=== PATIENT | female | born 1995 | race Caucasian/White ===

== ENCOUNTER 2016-11-17 21:04 | Inpatient (IN) | payer BC ==
[~2016-11-17] VITALS: Ht 175.3 cm; Wt 61.2 kg
[~2016-11-17 21:04] MED LIST: ABL/5 PO; LMC100 PO; LXP10 PO
[2016-11-17] MEDS ORDERED: ESCI1TAB10 PO (21:31)
[2016-11-17] MEDS ORDERED: LAMO200T38 PO (21:31)
[2016-11-17] MEDS ORDERED: LORA-741 PO (21:34)
--- NOTE | 2016-11-17 21:49 | EMERGENCY ROOM VISIT NOTE ---
History Report prepared by Daniel: Rom Price Under the Supervision of: Dr. Bob Rosa M.D. First contact with patient: 21:37 Chief Complaint: MENTAL HEALTH EVALUATION Stated Complaint: MENTAL HEALTH History of Present Illness The patient is a 21 year old female who presents to the Emergency Room for a mental health evaluation. She presents to the ED due to a suicidal thoughts that occurred today. She has many stressors in her life. These include financial stress due to her leaving her job and not having another one lined up , moving out of her apartment, and interpersonal stress due to her boss at her old job being her friend and he is dating her sister. She stated that the stressor today tipped her over the edge: her apartment ran out of oil for heat. She had a plan to take all of her pills to commit suicide. She has never tried to hurt herself before and only had this thought today. She is currently prescribed Ativan 0.5 mg PRN, Lexapro 20 mg, Abilify 5 mg, and Lamictal 175 mg. Her Lexapro and Lamictal were recently increased due to her "not doing well." She does not have any past medical history. She believes that inpatient help would be beneficial. Source of History: patient Onset: today Position: other (Mental Health) Symptom Intensity: mild Quality: other (Mental Health Evaluation) Timing: intermittent Note: She denies any other symptoms. Review of Systems See HPI for pertinent positives & negatives. A total of 10 systems reviewed and were otherwise negative. Past Medical & Surgical Medical Problems: (1) Abdominal pain (2) No significant medical problems Family History No significant family history Social History Smoking Status: Current Every Day Smoker Marital Status: single Occupation Status: student Current/Historical Medications Scheduled Aripiprazole (Abilify), 5 MG PO DAILY Escitalopram Oxalate (Lexapro), 20 MG PO HS Lamotrigine (Lamictal), 200 MG PO DAILY Scheduled PRN Lorazepam (Ativan), 0.5 MG PO Q6H PRN for Anxiety Allergies Coded Allergies: No Known Allergies (Unverified , 11/17/16) Physical Exam Vital Signs Date Time Temp Pulse Resp B/P Pulse Ox O2 Delivery O2 Flow Rate FiO2 11/17/16 21:15 37.1 89 18 107/65 98 Room Air Physical Exam GENERAL: Patient is in no acute distress. HEENT: No acute trauma, normocephalic atraumatic, mucous membranes moist, no nasal congestion, no scleral icterus. NECK: No stridor, no adenopathy, no meningismus, trachea is midline. LUNGS: Clear to auscultation bilaterally, no wheeze, no rhonchi, breath sounds equal. HEART: Without murmurs gallops or rubs, regular rate and rhythm. ABDOMEN: Soft, nontender, bowel sounds positive, no hernias, no peritonitis. EXTREMITIES: No cyanosis or edema, full range of motion of all the joints without pain or difficulty, no signs for acute trauma. NEUROLOGIC: Oriented x 3, no acute motor or sensory deficits, no focal weakness. SKIN: No rash, no jaundice, no diaphoresis. PSYCH: Cooperative, voluntary, admits to suicidal ideation with a plan to overdose on pills. Medical Decision & Procedures Laboratory Results 11/17/16 22:00 11/17/16 22:00 Test 11/17/16 00:00 11/17/16 22:00 Urine Color YELLOW Urine Appearance CLEAR (CLEAR) Urine pH 5.5 (4.5-7.5) Urine Specific [place] 1.001 (1.000-1.030) Urine Protein NEG (NEG) Urine Glucose (UA) NEG (NEG) Urine Ketones NEG (NEG) Urine Occult Blood 2+ (NEG) Urine Nitrite NEG (NEG) Urine Bilirubin NEG (NEG) Urine Urobilinogen NEG (NEG) Urine Leukocyte Esterase SMALL (NEG) Urine WBC (Auto) 5-10 /hpf (0-5) Urine RBC (Auto) 0-4 /hpf (0-4) Urine Hyaline Casts (Auto) 1-5 /lpf (0-5) Urine Epithelial Cells (Auto) >30 /lpf (0-5) Urine Bacteria (Auto) 1+ (NEG) Urine Opiates Screen NEG (NEG) Urine Methadone, Qualitative NEG (NEG) Urine Barbiturates NEG (NEG) Urine Phencyclidine (PCP) Level NEG (NEG) Ur Amphetamine/Methamphetamine NEG (NEG) MDMA (Ecstasy) Screen NEG (NEG) Urine Benzodiazepines Screen NEG (NEG) Urine Cocaine Metabolite NEG (NEG) Urine Marijuana (THC) POS (NEG) Red Blood Count 4.54 M/uL (4.2-5.4) Mean Corpuscular Volume 74.0 fL (80-100) Mean Corpuscular Hemoglobin 24.2 pg (25-34) Mean Corpuscular Hemoglobin Concent 32.7 g/dl (32-36) RDW Standard Deviation 39.5 fL (36.4-46.3) RDW Coefficient of Variation 14.9 % (11.5-14.5) Mean Platelet Volume 9.1 fL (7.4-10.4) Anion Gap 9.0 mmol/L (3-11) Est Creatinine Clear Calc Drug Dose 91.3 ml/min Estimated GFR () 96.1 Estimated GFR (Non- 82.9 BUN/Creatinine Ratio 11.2 (10-20) Calcium Level 8.8 mg/dl (8.5-10.1) Total Bilirubin 0.3 mg/dl (0.2-1) Aspartate Amino Transf (AST/SGOT) 21 U/L (15-37) Alanine Aminotransferase (ALT/SGPT) 25 U/L (12-78) Alkaline Phosphatase 65 U/L (45-117) Total Protein 7.7 gm/dl (6.4-8.2) Albumin 3.9 gm/dl (3.4-5.0) Globulin 3.8 gm/dl (2.5-4.0) Albumin/Globulin Ratio 1.0 (0.9-2) Thyroid Stimulating Hormone (TSH) 3.020 uIu/ml (0.300-4.500) Human Chorionic Gonadotropin, Qual NEG (NEG) Salicylates Level 2.0 mg/dl (2.8-20) Acetaminophen Level < 2 ug/ml (10-30) Ethyl Alcohol mg/dL < 3.0 mg/dl (0-3) Laboratory results reviewed by me. ED Course 2136: The patient was evaluated in room A7. A complete history and physical exam was performed. 0: I am waiting to hear back for where the patient will be accepted as an in patient. 2323: I was informed that the patient was accepted into our unit, [facility]. She will voluntarily enter under their care. Medical Decision Differential diagnosis includes but is not limited to: Drug/alcohol abuse, suicidal ideation, electrolyte imbalance, , and thyroid disorder. There is no leukocytosis or concerning anemia. No significant electrolyte abnormality, kidney failure or hepatitis. The patient appears to be in a euthyroid state. Urinalysis does not show infection but more so contamination. testing was negative. Urine tox shows marijuana only. Aspirin, Tylenol and alcohol levels were basically undetectable. The patient presents with suicidal thoughts. She is under some increased stress. She is voluntary and believes that an inpatient stay under the psychiatry services would be beneficial. The patient was felt medically clear for a psychiatric evaluation. The patient was seen by the psychiatry services from this hospital, [facility]. She will be brought into this hospital's psychiatric unit as a voluntary admission. She has done well while here in the emergency room. Impression Primary Impression: Suicidal ideation Scribe Attestation The scribe's documentation has been prepared under my direction and personally reviewed by me in its entirety. I confirm that the note above accurately reflects all work, treatment, procedures, and medical decision making performed by me. [facility] Patient Instructions My [facility]
[2016-11-17 22:15] LABS: URINE APPEARANCE CLEAR (CLEAR); URINE BILIRUBIN NEG (NEG); URINE COLOR YELLOW; URINE EPITHELIAL CELL AUTO >30 /lpf (0-5); URINE NITRITE NEG (NEG); URINE PH 5.5 (4.5-7.5); URINE SPECIFIC GRAVITY 1.001 (1.000-1.030); UROBILINOGEN NEG (NEG)
[2016-11-17 22:15] LABS: HEMATOCRIT 33.6 % (37-47); MEAN CORPUSCULAR HEMOGLOBIN 24.2 pg (25-34); MEAN CORPUSCULAR HGB CONC 32.7 g/dl (32-36); MEAN PLATELET VOLUME 9.1 fL (7.4-10.4); PLATELET COUNT 241 K/uL (130-400); RED BLOOD COUNT 4.54 M/uL (4.2-5.4)
[2016-11-17 22:26] LABS: MANUAL MICROSCOPIC REQUIRED? NO; REVIEW REQ? YES
[2016-11-17 22:29] LABS: ZZUR CULT IF INDIC CLEAN CATCH YES
[2016-11-17 22:33] LABS: BUN/CREATININE RATIO 11.2 (10-20); CALCIUM 8.8 mg/dl (8.5-10.1); CREATININE 0.97 mg/dl (0.60-1.20); POTASSIUM 3.6 mmol/L (3.5-5.1)
[2016-11-17 22:34] LABS: ACETAMINOPHEN < 2 ug/ml (10-30)
[2016-11-17 22:39] LABS: PREG INTERNAL NEGATIVE QC NEG CLEAR BACKGROUND; PREG INTERNAL POSITIVE QC POS CONTROL LINE
[2016-11-17 22:43] LABS: THYROID STIMULATING HORMONE 3.02 uIu/ml (0.300-4.500)
[2016-11-17 23:08] LABS: BENZODIAZEPINE, URINE NEG (NEG); COCAINE,URINE NEG (NEG); PHENCYCLIDINE, URINE NEG (NEG)
[2016-11-18] MEDS ORDERED: NURSING VERBAL MED ORDER ONE (00:15)
[2016-11-18 00:24] VITALS: O2SAT 98
[2016-11-18 00:45] VITALS: BP 107/61; PULSE 72; TEMP 37.1; Ht 175.3 cm; Wt 61.2 kg
[2016-11-18] MEDS ORDERED: SODIUM CHLORIDE 0.65% NA SOLN 45 ML (OCEAN) PRN (02:15)
[2016-11-18] MEDS ORDERED: ALUMINUM/MAGNESIUM SUSP 30 ML UDC PO PRN (02:15)
[2016-11-18] MEDS ORDERED: MAGNESIUM HYDROXIDE SUSP 30 ML UDC PO PRN (02:15)
[2016-11-18] MEDS ORDERED: hydrOXYzine HCL 25 MG TAB PO PRN ×2 (02:15)
[2016-11-18] MEDS ORDERED: BISMUTH SUBSALICYLATE PER ML OMNICELL CHARGE PO PRN (02:15)
[2016-11-18] MEDS ORDERED: ACETAMINOPHEN 325 MG TAB PO PRN (02:15)
[2016-11-18 06:55] VITALS: BP_SYST 89; BP_SYST 91; BP_DIAS 54; BP_DIAS 57; PULSE 60; PULSE 74; TEMP 36.6
[2016-11-18] MEDS ORDERED: LORAZEPAM 0.5 MG TAB PO PRN ×2 (09:00→22:00)
[2016-11-18] MEDS: ARIPIprazole TAB 5 MG TAB PO SCH (11:03)
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
[2016-11-18] MEDS: ESCITALOPRAM OXALATE 20 MG TAB PO SCH (21:03)
[2016-11-19 06:58] VITALS: BP_SYST 81; BP_SYST 95; BP_DIAS 47; BP_DIAS 60; PULSE 61; PULSE 65; TEMP 36.6
[2016-11-19] MEDS: ARIPIprazole TAB 5 MG TAB PO SCH (08:36)
[2016-11-19 08:54] LABS: CHOLESTEROL/HDL RATIO 2.8
--- NOTE | 2016-11-19 12:48 | Psychiatric Progress Notes ---
Progress Note Date of Service Nov 19, 2016. Interval History Serena Bai is a 21-year-old female who [place] room[place], has a history of bipolar type II, panic disorder, and dissociative disorder, and presented to the emergency room with worsening mood and suicidal ideation with a planned overdose on her medications. She was admitted on a 201 voluntary commitment. Chief Complaint "Pretty good". Subjective Patient was seen & assessed interval progress reviewed with Treatment Team. The patient is going to groups and participating. She reports mood has improved since admission, but had episode of high anxiety and excessive energy this AM, helped to exercise and do deep breathing. She denies SI. She thinks she is having daytime sedation due to take meds in the morning that she usually takes at bedtime. Reviewed her urine culture results with her. She has a family meeting with her parents scheduled for tomorrow. She plans to call her therapist today and see if she has any other recommendations for the patient to do when she leaves the hospital. Sleep Information Total Hours of Sleep: 6.50 Meal Information Percent of Breakfast Consumed: 80 Percent of Lunch Consumed: 100 Percent of Dinner Consumed: 100 Mental Status Exam During interview pt is: alert and oriented, cooperative Appearance: appropriately dressed, appropriately groomed Eye contact is: good Motor behavior is: steady gait & station, no abnormal motor movements Speech: normal in rate, rhythm & volume Affect: depressed, other (with occasional loud laughter) Mood is: depressed Thought process: goal directed, linear, logical Thought content: reality based without delusions Suicidal thought are: denied Homicidal thoughts are: denied Hallucinations: denies auditory, denies visual Cognition: memory grossly intact, attention grossly intact, language grossly intact Intelligence estimated to be: consistent with level of education Insight: fair Judgement: fair Impression 21-year-old female with a history of bipolar type II, panic disorder, and dissociative disorder who presents with worsening mood symptoms and suicidality in the context of multiple psychosocial stressors. She's been following with Dr. Duckworth at [facility], and just saw her 3 days ago and Lamictal and Lexapro were increased. She would benefit from therapy, working on her coping skills, safety planning, and a family meeting with her parents, as she feels they don't understand her mental health issues and are less than supportive. Inpatient treatment is the most appropriate and least restrictive level of care indicated at this time, due to the risk of suicide if discharged. Plan (1) Suicidal ideation Every 15 minute checks for safety. Attend unit groups and therapy. Work on healthy coping skills and her discharge safety plan. Work on a plan to have someone else hold her medications if possible, to limit her access to large amounts of medications, due to SI with planned overdose. Recommend family meeting with parents, which she is agreeing to. 11/19 - meeting with parents scheduled for tomorrow (2) Bipolar II disorder Continue escitalopram 20 mg daily, which was just increased 3 days ago. Increase lamotrigine to 200 mg daily. Continue home dose of aripiprazole 5 mg daily and consider dose increase to 7.5 mg daily. 11/19 - care coordinated with Dr. Duckworth, who believes she is bipolar type II, had recent episode of hypomania, then depression. (3) Dissociative disorder work on coping skills for anxiety. (4) Panic disorder Continue home dose of lorazepam 0.5 mg twice a day when necessary anxiety. Work on behavioral techniques for managing panic. (5) Nicotine addiction Offer patch and gun here. (6) Cannabis use disorder, mild, abuse Educate about the risks of ongoing use. Patient does not feel use is problematic , says it is minimal and helps with anxiety. Discharge / Aftercare Planning Primary Care Physician: Name: none Psychiatrist: Name: Dr. Duckworth Date of Appointment: Dec 06, 2016 Therapist: Name: Jackelyn Salazar Date of Appointment: Nov 26, 2016 Primer Charging Tool Setter: Name: ana Visit Code E&M Code: 52602 Inventory Assets Strengths: Good rapport with outpatient providers, hopefulness for the future Risk Factors Assessment : Yes /single/: Yes Higher / Fall in social status: No Health problems: No Mental Health Diagnoses: Yes Substance use disorders: Yes Previous attempt: No Family history of suicide: No Previous psychiatric stay: Yes Hopelessness: No Smoker: Yes Protective Factors Assessment Faith beliefs: No : No Responsible for young children: No Employed: Yes (but in the process of quitting her job and does not have a new job lined up) Stable relationships: No Supportive family: No Good rapport with provider: Yes Data Vital Signs Last 24 Hrs: Date Time Temp Pulse Resp B/P Pulse Ox O2 Delivery O2 Flow Rate FiO2 11/19/16 06:58 36.6 61 16 95/60 65 81/47 Meds Administered Last 24 Hrs: Meds Administered (Past 24Hrs) Medications (Trade) Dose Ordered Sig/Richie Route Start Time Stop Time Status Last Admin Dose Admin Acetaminophen (Tylenol Tab) 650 mg Q4H PRN PO 11/18/16 02:15 12/18/16 02:14 11/19/16 11:19 650 MG Aripiprazole (Abilify Tab) 5 mg DAILY PO 11/18/16 11:30 12/18/16 11:29 11/19/16 08:36 5 MG Escitalopram Oxalate (Lexapro Tab) 20 mg HS PO 11/18/16 22:00 12/18/16 21:59 11/18/16 21:03 20 MG Lamotrigine (Lamictal Tab) 200 mg DAILY PO 11/18/16 11:30 12/18/16 11:29 11/19/16 08:36 200 MG Lab Results Last 24 Hrs: Last 24 Hours Test 11/19/16 08:09 Fasting Glucose 94 mg/dl Triglycerides Level 53 mg/dl Cholesterol Level 146 mg/dl HDL Cholesterol 52 mg/dl LDL Cholesterol, Calculated 83 mg/dl VLDL Cholesterol, Calculated 11 mg/dl Cholesterol/HDL Ratio 2.8
[2016-11-19] MEDS: ESCITALOPRAM OXALATE 20 MG TAB PO SCH (21:23)
[2016-11-20 07:01] VITALS: BP_SYST 101; BP_SYST 83; BP_DIAS 47; BP_DIAS 61; PULSE 64; PULSE 72; TEMP 36.8
--- NOTE | 2016-11-20 11:12 | Psychiatric Progress Notes ---
Progress Note Date of Service Nov 20, 2016. Interval History Serena Bai is a 21-year-old female who currently [place] room[place], has a history of bipolar type II, panic disorder, and dissociative disorder, and presented to the emergency room with worsening mood and suicidal ideation with a planned overdose on her medications. She was admitted on a 201 voluntary commitment. Chief Complaint "Okay, I'm working on my plan". Subjective Patient was seen & assessed interval progress reviewed with Treatment Team. Staff report she is going to groups and actively participating. She says her mood is "not the best," but is more stable than on admission, and "not as super extreme." She continues to have ups and downs in energy throughout the day, and some tearfulness. She denies SI and dissociative episodes since the day of admission. She denies side effects to medications. She talked to her therapist yesterday who encouraged her to work on a plan to limit stress while she makes upcoming transitions (moving to [facility]). She has been working on her plan for the next few months, and her parents had encouraged her to move back home temporarily, which she thinks would be best. She has a meeting with them this afternoon, and they are coming to the hospital in person. She is hoping to get a new psychiatrist at [facility] who specializes in bipolar. Sleep Information Total Hours of Sleep: 7.25 Meal Information Percent of Breakfast Consumed: 95 Percent of Lunch Consumed: 100 Percent of Dinner Consumed: 90 Mental Status Exam During interview pt is: alert and oriented, cooperative Appearance: appropriately dressed, appropriately groomed Eye contact is: good Motor behavior is: steady gait & station, no abnormal motor movements Speech: normal in rate, rhythm & volume Affect: euthymic, other (with occasional loud laughter) Mood is: other ("not the best") Thought process: goal directed, linear, logical Thought content: reality based without delusions Suicidal thought are: denied Homicidal thoughts are: denied Hallucinations: denies auditory, denies visual Cognition: memory grossly intact, attention grossly intact, language grossly intact Intelligence estimated to be: consistent with level of education Insight: good Judgement: good Impression 21-year-old female with a history of bipolar type II, panic disorder, and dissociative disorder who presented with worsening mood symptoms and suicidality in the context of multiple psychosocial stressors. She's been following with Dr. Duckworth at [facility], just saw her 3 days prior to admission, and Lamictal and Lexapro were increased. She would benefit from therapy, working on her coping skills, safety planning, and a family meeting with her parents, as she feels they don't understand her mental health issues and are less than supportive. Inpatient treatment is the most appropriate and least restrictive level of care indicated at this time, due to the risk of suicide if discharged. Plan (1) Suicidal ideation Every 15 minute checks for safety. Attend unit groups and therapy. Work on healthy coping skills and her discharge safety plan. Work on a plan to have someone else hold her medications if possible, to limit her access to large amounts of medications, due to SI with planned overdose. Recommend family meeting with parents, which she is agreeing to. 11/20 - meeting with parents scheduled for tomorrow (2) Bipolar II disorder Continue escitalopram 20 mg daily, which was just increased 3 days ago. Increase lamotrigine to 200 mg daily. Continue home dose of aripiprazole 5 mg daily and consider dose increase to 7.5 mg daily. 11/19 - care coordinated with Dr. Duckworth, who believes she is bipolar type II, had recent episode of hypomania, then depression. 11/20 - mood improving, continue above medications. - family meeting today - assist with referring to bipolar specialist in [place] (3) Dissociative disorder work on coping skills for anxiety. (4) Panic disorder Continue home dose of lorazepam 0.5 mg twice a day when necessary anxiety. Work on behavioral techniques for managing panic. (5) Nicotine addiction Offer patch and gun here. (6) Cannabis use disorder, mild, abuse Educate about the risks of ongoing use. Patient does not feel use is problematic , says it is minimal and helps with anxiety. Discharge / Aftercare Planning Primary Care Physician: Name: none Psychiatrist: Name: Dr. Duckworth Date of Appointment: Dec 06, 2016 Therapist: Name: Jackelyn Salazar Date of Appointment: Nov 26, 2016 Senior Staff Specialized Employment: Name: no Visit Code E&M Code: 38634 Inventory Assets Strengths: Good rapport with outpatient providers, hopefulness for the future Risk Factors Assessment : Yes /single/: Yes Higher / Fall in social status: No Health problems: No Mental Health Diagnoses: Yes Substance use disorders: Yes Previous attempt: No Family history of suicide: No Previous psychiatric stay: Yes Hopelessness: No Smoker: Yes Protective Factors Assessment Congregational beliefs: No : No Responsible for young children: No Employed: Yes (but in the process of quitting her job and does not have a new job lined up) Stable relationships: No Supportive family: No Good rapport with provider: Yes Data Vital Signs Last 24 Hrs: Date Time Temp Pulse Resp B/P Pulse Ox O2 Delivery O2 Flow Rate FiO2 11/20/16 07:01 36.8 64 16 101/61 72 83/47 Meds Administered Last 24 Hrs: Meds Administered (Past 24Hrs) Medications (Trade) Dose Ordered Sig/Richie Route Start Time Stop Time Status Last Admin Dose Admin Aripiprazole (Abilify Tab) 5 mg DAILY PO 11/18/16 11:30 11/19/16 12:51 DC 11/19/16 08:36 5 MG Escitalopram Oxalate (Lexapro Tab) 20 mg HS PO 11/18/16 22:00 12/18/16 21:59 11/19/16 21:23 20 MG Lamotrigine (Lamictal Tab) 200 mg DAILY PO 11/18/16 11:30 11/19/16 12:51 DC 11/19/16 08:36 200 MG
[2016-11-20] MEDS: ESCITALOPRAM OXALATE 20 MG TAB PO SCH (21:13)
[2016-11-20] MEDS ORDERED: ARIPIprazole TAB 5 MG TAB PO SCH (22:00)
[2016-11-21 06:41] VITALS: BP_SYST 91; BP_SYST 94; BP_DIAS 54; BP_DIAS 57; PULSE 66; PULSE 67; TEMP 36.8
--- NOTE | 2016-11-21 10:46 | Discharge Instructions ---
Discharge Information Report Includes Report will include the: Discharge Instructions & Summary Admission Admission Date / Time: Nov 18, 2016 at 00:15 Reason for Admission: Suicidal Ideations With Plan To Overdose Discharge Discharge Diagnosis / Problem: Bipolar type II Condition at Discharge: Good Discharge Goals Goal(s): Improve function, Improve disease control, Learn about illness, Therapeutic intervention Activity Recommendations Activity Limitations: per Instructions/Follow-up section . Instructions / Follow-Up Instructions / Follow-Up . SPECIAL CARE INSTRUCTIONS: 1. Follow through with your scheduled aftercare appointments. If unable to keep an appointment, please call to reschedule. 2. Take your medication only as prescribed. Medication should not be changed or stopped without the approval of your doctor. In the event of worsening symptoms or concerns about side effects, contact your doctor immediately. 3. Utilize new healthy coping skills, anger management skills, and stress management skills learned during your hospitalization. Journal feelings and process them with a support person. Identify stressors or situations that may result in relapse, deterioration or inappropriate behaviors and develop a plan to deal with those issues. 4. If your coping skills are ineffective and you are in crisis, contact your outpatient providers for direction. If unable to reach your providers, please call the CAN HELP LINE AT or go to the closest Emergency Room. 5. Avoid alcohol and un-prescribed drugs. 6. You have been provided with the Mental Health Advance Directives Pamphlet for your review. AFTERCARE APPOINTMENTS: * Please call your insurance company prior to your scheduled appointment to confirm your aftercare providers are covered. Take your insurance information to your appointments. . Discharge / Aftercare Planning Primary Care Physician: Name: see urgent care list Psychiatrist: Name: Dr. Duckworth Date of Appointment: Nov 22, 2016 Time of Appointment: 1:30 Appointment Notes: and 12/06 @1:30 Therapist: Name Of Therapist: Jackelyn Salazar Date of Appointment: Nov 26, 2016 Time of Appointment: 2pm Oyster Worker: Name: no Home Health Services: Home Health Services: none . Follow-Up Care Plan for Follow-Up Care: See above. Current Hospital Diet Patient's current hospital diet: Regular Diet Discharge Diet Recommended Diet: Regular Diet Procedures Procedures Performed: No Pending Studies Pending Studies at Discharge: No Medical Emergencies . Who to Call and When: Medical Emergencies: For questions or emergencies related to your hospital stay, please contact the Inpatient Behavioral Health Unit at [phone]. A program clinician is on-call 08/04 for the Behavioral Health Unit for emergencies At any time you feel your situation is an emergency, you may also call 911 immediately. . Non-Emergent Contact Non-Emergency issues call your: Primary Care Provider, Psychiatrist, Therapist Past History Medical & Surgical History: (1) Suicidal ideation (2) Dissociative disorder (3) Nicotine addiction (4) Cannabis use disorder, mild, abuse Advance Directives Existing Advance Directive: No Do You Have an Existing Mental: No Existing Living Will: No Existing Power of Trophy Assembler: No Advance Directives Info Given: To Pt/S.O. Discharge Summary Admission HPI Per the Admitting provider: The patient is known from a previous admission to our unit in March 2015 for depression and suicidality. She reported a long history of depression dating back to middle school, which was not treated until she was in high school, at which time she saw a psychiatrist and psychologist, was placed on fluoxetine, but then stopped it after a few months as she felt better. She did not receive further treatment until a year and a half later, when she was a freshman at [employer] , at which point she had counseling. In the spring, she started seeing WALDO Wang, who started her on escitalopram for mood and anxiety. She appeared to become activated on the medication, her diagnosis was switched to bipolar type II, and she was started on lamotrigine and aripiprazole. She was then admitted to our unit, lamotrigine was increased, and she was restarted on escitalopram, which she tolerated well. She was referred to a psychiatrist at her WALDO's recommendation, and was scheduled with Dr. Duckworth, whom she continues to see. She had a family meeting with her sister, but declined involvement of her parents, whom she did not feel was supportive. Since that time, she's continued to follow-up with her psychiatrist and therapist. Today, the patient reports she's had worsening mood in the context of multiple stressors, including "a new diagnosis, it changed from depression to some kind of bipolar," job stress, financial problems, and yesterday ran out of heating oil at her apartment and felt overwhelmed and unable to deal with it. She has been working at a [email or web address] and reports "drama" and interpersonal issues there, and put in a two week notice one week ago. Her sister has been dating her boss, "which causes weird overlap of interaction, and weird resentments, and she also works at the business." She has tried to find another job but hasn't been able to find something she thinks she will like. She is living with 2 roommates but was hoping to move to [place] in February, but doesn' t have enough money. After running out of heating oil yesterday, she reports feeling unable to cope, "couldn't handle what I was feeling," and called her therapist who recommended she come to the ER. She started having SI acutely yesterday "during meltdown time," describes an impulse to take all of her pills to end her life. She had all her pills on her, as she stays at her boyfriend's sometimes, but denies that she actually took any, because "I just have an insane amount of self control, have never tried to kill myself, even though I' ve been dealing with severe mental illness since I was 9." Mood has been depressed for over a month, with "high energy days" 1-2 times a week, where mood is euphoric and she feels "more productive, happy and ready to go," but then returns to "anxious and overwhelmed." Reports frequent crying spells, decreased appetite but no weight changes, fatigue, wanting to sleep "for hours and hours," getting 7-9 hours a night, feelings of guilt and low self esteem. Energy is variable. She says her therapist and psychiatrist told her she has bipolar II as she had a hypomanic episode 5-6 weeks ago where she was "really high energy, really productive, staying up late to clean, taking on a lot of different projects," which lasted 3-4 weeks. She reports anxiety with weekly panic attacks where she feels "scared, uncomfortable, have to focus on breathing , mind going all over the place." Sometimes they last up to 12 hours, but typically around 1-3 hours. Reports chronic worry, "always been anxious," difficulty controlling the worry, but denies other SIENA symptoms. Reports OCD symptoms as a child, was very picky about eating, and "obsessed with making lists, getting things done," which sometimes flare when she is hypomanic. Reports chronic interpersonal problems, "my parents don't understand, my sister doesn't really like me, my boss doesn't like me, my boyfriend has his own things to deal with." Admits she struggles to take care of herself when not feeling well and doesn't eat well, doesn't use stress management skills. Denies psychosis, classic tracy, HI, eating disorder. Reports multiple episodes of dissociation where she feels disconnected from time and place, describes "low level" dissociation that occurs 75% of the time, and "major episodes" where she is panicking and lasts a few hours, once a week. Denies "losing time," out of body experiences, or fugue states. Triggered by distress and anxiety; alleviated by having someone present to can help reassure her. Per outpatient records from Dr. Duckworth, patient was last seen 11/15, and was to increase lamotrigine to 175mg daily for 1 week, then increase to 200mg daily. Her Lexapro was increased to 20mg as well, and Abilify was continued at 5mg and lorazepam continued at 0.5mg daily prn panic. Admission Exam Per the Admitting provider: Please see admission H&P. Consultations None. Hospital Course (1) Suicidal ideation Every 15 minute checks for safety. Attend unit groups and therapy. Work on healthy coping skills and her discharge safety plan. Work on a plan to have someone else hold her medications if possible, to limit her access to large amounts of medications, due to SI with planned overdose. Recommend family meeting with parents, which she is agreeing to. (2) Bipolar II disorder Continue escitalopram 20 mg daily, which was just increased 3 days ago. Increase lamotrigine to 200 mg daily. Continue home dose of aripiprazole 5 mg daily and consider dose increase to 7.5 mg daily. 11/19 - care coordinated with Dr. Duckworth, who believes she is bipolar type II, had recent episode of hypomania, then depression. 11/20 - mood improving, continue above medications. - family meeting today - assist with referring to bipolar specialist in [place] 11/21 - SI resolved, mood stabilized, has safety plan and aftercare arranged. Will coordinate care with Dr. Duckworth whom she is seeing tomorrow. (3) Dissociative disorder work on coping skills for anxiety. (4) Panic disorder Continue home dose of lorazepam 0.5 mg twice a day when necessary anxiety. Work on behavioral techniques for managing panic. (5) Nicotine addiction Offer patch and gum here. 11/21 - Patient declines smoking cessation treatment/medication at discharge. (6) Cannabis use disorder, mild, abuse Educate about the risks of ongoing use. Patient does not feel use is problematic , says it is minimal and helps with anxiety. 11/21 - will f/u with therapist and psychiatrist for mental health and substance abuse treatment. Risk Factors Assessment : Yes /single/: Yes Higher / Fall in social status: No Health problems: No Mental Health Diagnoses: Yes Substance use disorders: Yes Previous attempt: No Family history of suicide: No Previous psychiatric stay: Yes Hopelessness: No Smoker: Yes Protective Factors Assessment Mandaen beliefs: No : No Responsible for young children: No Employed: Yes (but in the process of quitting her job and does not have a new job lined up) Stable relationships: No Supportive family: No Good rapport with provider: Yes Absence of risk factors above: Yes (risk factors were mitigated by continuing medications to target mood and anxiety, engaging the patient in therapy and groups on the unit, working on healthy coping skills and her discharge safety plan, involving her parents who are supportive in a family meeting, correlating care with outpatient providers, and arranging aftercare. The patient's mood has improved, suicidal thoughts have resolved, and she is willing to follow-up with outpatient providers. She is requesting discharge, and as she is no longer at acute risk of harm to herself, can be managed as an outpatient at this time.) Day of Discharge Assessment Hospital Course: Patient was calm and cooperative throughout her stay. She attended groups and participated appropriately in treatment. She had episodes of "too much energy, " and was able to work on healthy ways to cope with this, including exercise and deep breathing. She tolerated her medications well, and no changes were made, as she'd had multiple adjustments just prior to admission. She was noted to be eating and sleeping well, and performing ADLs independently. She had a family meeting with her parents, who were supportive, and encouraged her to come and stay with them in [facility] until she could get her own place in [place]. She agreed that this was the best plan, and her mother is looking for outpatient mental health providers for her in [facility]. Day of discharge assessment: The patient states that her mood is "pretty good," and she is looking forward to discharge. She denies suicidal thoughts, and is able to review the coping skills that help her as well as her safety plan. She reports a good meeting with her parents, and plans to move in with them in [facility] next month, until she has enough money to get her own place in [place]. Her mother is looking for mental health providers for her in their area. In the meantime, she will continue to see her local providers, whom she reports good relationships with. She denies any side effects to medications. She continues to have periods of high anxiety, but is able to manage it with her coping skills. Well nourished, well developed WF appearing stated age. Casually dressed and adequately groomed. Calm and cooperative. Seated in NAD, with fair eye contact and no abnormal movements. Speech is normal rate, volume, and tone. Mood is "good," and affect is stable and congruent. Thoughts are linear, logical and goal directed. The patient denied suicidal and homicidal ideation and was able to safety plan. No paranoia, delusions, or hallucinations, and did not appear to be responding to internal stimuli. Cognition was grossly intact. Alert and oriented to person, place and time. Intelligence is consistent with level of education. Insight and and judgment are fair. Laboratory Refer to printed laboratory reports Total Time Total Time Spent (min): Greater than 30 minutes Total Time Included: examination of the patient, discharge planning, medication reconciliation, communication with other providers Tobacco Cessation at Discharge FDA approved Prescription: patient refused
== END 2016-11-21 12:58 | disposition home or self-care (01) | DRG 880 ==
LOC: ENRESERVTM → ENRESERVDT → C.EDB 21:06 → C.MHU 11-18 00:15
PROVIDERS: ADMIT Psychiatry & Neurology Psychiatry; ATTEND Psychiatry & Neurology Psychiatry
DX: R45.851 Suicidal ideations (principal); F31.81 Bipolar II disorder; F41.0 Panic disorder [episodic paroxysmal anxiety]; F44.9 Dissociative and conversion disorder, unspecified; F17.210 Nicotine dependence, cigarettes, uncomplicated; F12.90 Cannabis use, unspecified, uncomplicated; Z56.0 Unemployment, unspecified; Z59.1 Inadequate housing; Z81.8 Family history of other mental and behavioral disorders; Z79.899 Other long term (current) drug therapy